=== PATIENT | female | born 1975 | race Caucasian/White ===

== ENCOUNTER 2017-03-08 00:02 | Emergency (ER) | payer SELFPAY, MEDICAID | END 2017-03-08 02:39 | disposition left against medical advice (07) | LOC: FTE 00:02 | DX: Z53.21 Procedure and treatment not carried out due to patient leaving prior to being seen by health care provider (principal) ==

== ENCOUNTER 2018-09-25 13:01 | Emergency (ER) | payer MEDICAID | END 2018-09-25 13:24 | disposition home or self-care (01) | LOC: E/R 13:01 | DX: R07.89 Other chest pain (principal) | CPT/HCPCS: 93005; 99283-25 ==